=== PATIENT | male | born 1990 | race African-American/Black ===

== ENCOUNTER 2024-04-20 21:29 | Emergency (ER) | payer OTHER ==
--- NOTE | 2024-04-20 22:43 | ED Physician Documentation ---
PD HPI UPPER EXT INJURY - Stated complaint Stated Complaint: DOG BITE - Chief complaint Chief Complaint: Laceration - History obtained from History obtained from: Patient - Additonal information Additional information: HPI from patient. At approximately 8:30 PM tonight, patient was bitten by his dog. The dog was in a fight with another dog and patient sustained the bite when he was trying to separate the two dogs. Patient was bitten once to his right hand, sustaining a single laceration in the third webspace. Patient is right-hand dominant. Patient is up-to-date on tetanus immunization. Patient denies numbness, weakness. PD PAST MEDICAL HISTORY - Past Medical History Past Medical History: No - Past Surgical History Past Surgical History: No - Present Medications Home Medications: Ambulatory Orders Medication Instructions Recorded Confirmed Amox/Clav 875/125 [Augmentin 1 tablet PO Q12H 5 Days #10 tablet 04/21/24 875/125 Tab] - Allergies Allergies/Adverse Reactions: Allergies Allergy/AdvReac Type Severity Reaction Status Date / Time No Known Drug Allergies Allergy Verified 04/20/24 21:46 - Social History Does the pt smoke?: No Smoking Status: Never smoker Does the pt drink ETOH?: No Does the pt have substance abuse?: No - Immunizations Immunizations are current?: Yes - POLST Patient has POLST: No PD ED PE NORMAL - Vitals Vital signs reviewed: Yes - General General: Alert and oriented X 3, Well developed/nourished, Other (appears anxious) - Extremities Extremities: Other (1.5 cm length laceration dorsal surface of right hand at third webspace. LTS intact in fingers. no active bleeding. FROM (flexion, extension) with normal strength) Results - Vitals Vitals: Vital Signs - 24 hr 04/20/24 04/21/24 21:43 00:53 Temperature 36.6 C 36.7 C Heart Rate 91 74 Respiratory 18 18 Rate Blood Pressure 142/80 H 133/84 H O2 Saturation 97 100 Oxygen O2 Source Room air Procedures - Laceration (location) Hand right Length in cm: 1.5 Wound type: Linear, Into subcut fat, Clean Neurovascular status: Sensory intact, Motor intact, Vascular intact Tendon involvement: Tendon intact Anesthesia: Lidocaine 1% Wound preparation: Chlorhexadine, Irrigated copiously NS, Wound explored Skin layer closure: Nylon, Interrupted (a single simple interrupted suture placed in middle of wound to (successfully) close slight gap after the running suture was complete), Running (running suture with four throws) Other: Patient tolerated well, No complications, Neurovascular intact, Dressing applied, Tetanus UTD PD Medical Decision Making - ED course Complexity details: considered differential, d/w patient ED course: Patient was asking for anti-anxiety medication (specifically Valium) before undertaking wound repair. He does appear anxious and is not driving home, and thus I accommodate this request. He is given 5 mg p.o. Valium. He is also given 875 mg p.o. Augmentin for wound prophylaxis. Wound repaired as per procedure note, above. I am providing a 5-day prescription for Augmentin. Return precautions reviewed. Advised to follow-up with his PCP in 7 to 10 days for suture removal. Departure - Departure Disposition: 01 Home, Self Care Clinical Impression: Dog bite Qualifiers: Encounter type: initial encounter Qualified Code(s): W54.0XXA - Bitten by dog, initial encounter Condition: Good Instructions: ED Bite Dog, ED Laceration Hand, ED Wound Care Prescriptions: Amox/Clav 875/125 [Augmentin 875/125 Tab] 1 tablet PO Q12H 5 Days #10 tablet Comments: I have electronically submitted a prescription for Augmentin (antibiotic) to the [facility] pharmacy in [place]. This is to prevent infection. Follow-up with your primary care provider in 7 to 10 days for removal of the stitches. When you follow-up for removal of the stitches, bring these discharge sheets and show the medical practitioner the following information: running stitch with four throws as well as single simple interrupted suture Discharge Date/Time: 04/21/24 00:57
[2024-04-20] MEDS: AMOX/CLAV 875 MG/125 MG TABLET PO STA (23:15)
[2024-04-20] MEDS: diazePAM 5 MG TABLET PO STA (23:15)
[2024-04-20] MEDS: LIDOCAINE 1% 2 ML VIAL SUBQ STA (23:16)
[2024-04-21] MEDS: BACITRACIN ZINC OINT 1 PACKET TOP STA (00:50)
[2024-04-21 00:59] VITALS: BP 133/84; O2SAT 100
== END 2024-04-21 00:57 | disposition home or self-care (01) ==
LOC: ED 21:29
DX: S61.451A Open bite of right hand, initial encounter (principal); W54.0XXA Bitten by dog, initial encounter
CPT/HCPCS: 12001; 99283; A9270

== ENCOUNTER 2024-05-12 18:23 | Emergency (ER) | payer OTHER ==
--- NOTE | 2024-05-12 18:53 | ED Physician Documentation ---
PD HPI NECK PAIN - Stated complaint Stated Complaint: NECK PX - Chief complaint Chief Complaint: Back Pain - History obtained from History obtained from: Patient - Additional information Additional information: Otherwise healthy 33-year-old gentleman who has had neck spasms in the past developed neck spasm while weightlifting earlier today. It is on the right side and he cannot turn his head to the right now. In the past he has received muscle relaxers for similar symptomatology with relief. PD PAST MEDICAL HISTORY - Past Medical History Past Medical History: No - Past Surgical History Past Surgical History: No - Present Medications Home Medications: Ambulatory Orders Medication Instructions Recorded Confirmed Cyclobenzaprine [Flexeril] 10 mg PO TID PRN #20 tablet 05/12/24 Ibuprofen [Motrin] 800 mg PO Q8H PRN #30 tablet 05/12/24 - Allergies Allergies/Adverse Reactions: Allergies Allergy/AdvReac Type Severity Reaction Status Date / Time No Known Drug Allergies Allergy Verified 05/12/24 18:43 - Social History Does the pt smoke?: No Smoking Status: Never smoker Does the pt drink ETOH?: No Does the pt have substance abuse?: No - Immunizations Immunizations are current?: Yes - POLST Patient has POLST: No PD ED PE NORMAL - Vitals Vital signs reviewed: Yes - General General: Alert and oriented X 3, No acute distress - HEENT HEENT: PERRL, EOMI - Neck Neck: Other (Tender over the right sternocleidomastoid and holding the head rotated to the left.) - Neuro Neuro: Alert and oriented X 3, tso 2-12 intact Eye Opening: Spontaneous Motor: Obeys Commands Verbal: Oriented GCS Score: 15 - Psych Psych: Normal mood, Normal affect Results - Vitals Vitals: Vital Signs - 24 hr 05/12/24 05/12/24 18:30 19:32 Temperature 36.3 C L Heart Rate 57 L 66 Respiratory 16 16 Rate Blood Pressure 123/76 131/73 H O2 Saturation 100 99 Oxygen O2 Source Room air Procedures - General procedure General procedure: Trigger point injection with about 5 mL of 0.5% bupivacaine was done in the right sternocleidomastoid to the area of maximum pain PD Medical Decision Making - ED course ED course: He has a right-sided sternocleidomastoid neck spasm. No trauma, no need for imaging. He was administered Toradol, trigger point injection with bupivacaine, and Flexeril here. Departure - Departure Disposition: 01 Home, Self Care Clinical Impression: Neck muscle spasm Condition: Good Record reviewed to determine appropriate education?: Yes Instructions: ED Spasm Neck No Injury Prescriptions: Cyclobenzaprine [Flexeril] 10 mg PO TID PRN #20 tablet PRN Reason: Spasms Ibuprofen [Motrin] 800 mg PO Q8H PRN #30 tablet PRN Reason: PAIN &/OR FEVER Comments: I sent your prescriptions electronically to the [facility] in [place]. Heat and gentle stretching is appropriate. No vigorous activities until symptoms are resolved. Call your doctor to arrange a follow-up appointment, make the next available appointment. In the interim, return anytime if worse or if new symptoms develop. Forms: Activity restrictions Discharge Date/Time: 05/12/24 19:33
[2024-05-12] MEDS: BUPIVACAINE 0.5% PF 10 ML VIAL SUBQ STA (19:04)
[2024-05-12] MEDS: KETOROLAC 60 MG/2 ML VIAL IM STA (19:05)
[2024-05-12] MEDS: CYCLOBENZAPRINE 10 MG TABLET PO STA (19:05)
[2024-05-12 19:39] VITALS: BP 131/73; O2SAT 99
== END 2024-05-12 19:33 | disposition home or self-care (01) ==
LOC: ED 18:23
DX: M62.838 Other muscle spasm (principal); X50.9XXA Other and unspecified overexertion or strenuous movements or postures, initial encounter; Y93.B9 Activity, other involving muscle strengthening exercises
CPT/HCPCS: 20552; 96372; 99283; A9270

== ENCOUNTER 2024-06-21 13:09 | Emergency (ER) | payer OTHER ==
[2024-06-21 13:25] VITALS: BP 127/64; O2SAT 100
--- NOTE | 2024-06-21 14:32 | ED Physician Documentation ---
History of Present Illness - Stated complaint Stated Complaint: RT SHOULDER PX - Chief complaint Chief Complaint: Ext Problem - History obtained from History obtained from: Patient - Additonal information Additional information: The patient comes to the emergency department chief complaint of right shoulder pain that is been going on for the last few days. He states that he has had this happen a couple of times before and that it is always triggered by Repetitive use of his arm above his head. He states that he feels an ache and sometimes a sharp pain toward the anterior rim of his shoulder going down his deltoid. He states that it is worse with forward flexion and abduction of his shoulder. He denies any numbness or tingling. No weakness in his hand. He states that he did not have any direct trauma. He is healthy otherwise. PD PAST MEDICAL HISTORY - Past Surgical History Past Surgical History: No - Present Medications Home Medications: Ambulatory Orders Medication Instructions Recorded Confirmed Cyclobenzaprine [Flexeril] 10 mg PO TID PRN #20 tablet 05/12/24 Ibuprofen [Motrin] 800 mg PO Q8H PRN #30 tablet 05/12/24 predniSONE [Deltasone] 10 mg PO [id number] #42 tab 06/21/24 - Allergies Allergies/Adverse Reactions: Allergies Allergy/AdvReac Type Severity Reaction Status Date / Time No Known Drug Allergies Allergy Verified 06/21/24 13:13 - Social History Does the pt smoke?: No Smoking Status: Never smoker Does the pt drink ETOH?: No Does the pt have substance abuse?: No - Immunizations Immunizations are current?: Yes - POLST Patient has POLST: No PD ED PE NORMAL - Vitals Vital signs reviewed: Yes - General General: Alert and oriented X 3, No acute distress, Well developed/nourished - HEENT HEENT: Atraumatic, PERRL, EOMI, Moist mucous membranes - Neck Neck: Supple, no meningeal sign - Cardiac Cardiac: Strong equal pulses - Respiratory Respiratory: No respiratory distress - Derm Derm: Normal color, Warm and dry, No rash - Extremities Extremities: No deformity, No edema, Other (Tenderness to palpation anterior glenoid rim and extending down over the Anterolateral shoulder musculature including deltoid. No posterior shoulder tenderness. No deformity. No clicking or popping with movement.) - Neuro Neuro: Alert and oriented X 3 - Psych Psych: Normal mood, Normal affect Results - Vitals Vitals: Vital Signs - 24 hr 06/21/24 13:13 Temperature 36.8 C Heart Rate 72 Respiratory 16 Rate Blood Pressure 127/64 O2 Saturation 100 Oxygen O2 Source Room air Departure - Departure Clinical Impression: Shoulder pain, right Qualifiers: Chronicity: acute Qualified Code(s): M25.511 - Pain in right shoulder Tendinitis of shoulder Qualifiers: Laterality: right Qualified Code(s): M77.8 - Other enthesopathies, not elsewhere classified Condition: Stable Instructions: ED Shoulder Pain UKO Prescriptions: predniSONE [Deltasone] 10 mg PO [id number] #42 tab Comments: I have sent a prescription for steroid taper to the [facility] pharmacy in [place]. You may also take ibuprofen 4 your shoulder pains, as well. You should avoid using your arms up above your head or in any other capacity that causes pain, especially if these are movements that are weighted or otherwise strenuous. If your symptoms do not resolve on their own in the next 2 or 3 weeks, it would be [place] the [place]. Forms: PCP List
[2024-06-21] MEDS: DEXAMETHASONE 10 MG/ML VIAL IM STA (14:41)
[2024-06-21] MEDS: KETOROLAC 60 MG/2 ML VIAL IM STA (14:41)
--- NOTE | 2024-06-21 16:05 | ED Physician Documentation ---
ED Addendum - Addendum Addendum: 06/21/24 16:[address] Miguel at 3 PM shift change pending radiography of the right shoulder. This was independently viewed by me and looks normal with the radiologist read pending which I will follow-up on after discharge. The history described to me by Dr. Miguel is most consistent with an overuse tendinitis and he is given a work note for light duty. Disposition: Discharged home Condition: Stable Diagnosis: 1. Right shoulder tendinitis
--- NOTE | 2024-06-21 16:07 | XRAY Report ---
PROCEDURE: Shoulder 2+V RT INDICATIONS: anterior R shoulder pain TECHNIQUE: 3 views of the shoulder were acquired. COMPARISON: None. FINDINGS: Bones: No fractures or dislocations. No suspicious bony lesions. Visualized ribs appear intact. Soft tissues: No suspicious soft tissue calcifications. The visualized lungs are within normal limi ts. IMPRESSION: No acute bony abnormality. Reviewed by: Yajaira Villar MD on 06/21/2024 4:06 PM PDT Approved by: Yajaira Villar MD on 06/21/2024 4:06 PM PDT Station ID: [id number]
== END 2024-06-21 16:18 | disposition home or self-care (01) ==
LOC: ED 13:09
DX: M77.8 Other enthesopathies, not elsewhere classified (principal); M25.511 Pain in right shoulder
CPT/HCPCS: 96372; 99283